=== PATIENT | male | born 1980 | race Hispanic/Latino ===

== ENCOUNTER 2022-01-27 23:05 | Emergency (ER) | payer OTHER ==
[~2022-01-27] VITALS: Ht 175.3 cm; Wt 2.3 kg
[2022-01-27] MEDS ORDERED: ACETAMINOPHEN 500 MG TABLET ONE (23:40)
[2022-01-28] MEDS ORDERED: ACETAMINOPHEN 500 MG TABLET PO ONE
[2022-01-28] MEDS ORDERED: SOLU-MEDROL 125MG VIAL IM ONE (00:30)
[2022-01-28] MEDS ORDERED: PENICILLIN G BENZATHINE LA 1.2 MILUNITS/2 ML SYG IM ONE (00:30)
[2022-01-28] MEDS ORDERED: IBUP-2077 PO (01:43)
[2022-01-28 02:08] VITALS: BP 122/56
== END 2022-01-28 02:11 | disposition home or self-care (01) ==
LOC: EDH 23:05
DX: J02.0 Streptococcal pharyngitis (principal); Z20.822 Contact with and (suspected) exposure to COVID-19
CPT/HCPCS: 99284; 87635; 87880; 87804 ×2; 96372 ×2; C9803; J0561; J2930